=== PATIENT | female | born 1965 | race Caucasian/White ===

== ENCOUNTER 2023-11-17 11:56 | Inpatient (IN) | payer BC ==
[~2023-11-17] VITALS: Ht 157.5 cm; Wt 68.0 kg
[2023-11-17 12:51] LABS: BASOPHILS % (AUTO) 0.2 % (0.0-2.0); EOSINOPHILS % (AUTO) 0.2 % (0.0-6.0); HEMATOCRIT 38 % (33-45); HEMOGLOBIN 12.3 g/dL (11.5-14.8); LYMPHOCYTES # (AUTO) 0.8 K/uL (0.8-4.8); LYMPHOCYTES % (AUTO) 5.5 % (20.0-44.0); MEAN CORPUSCULAR HEMOGLOBIN 30 PG (26.0-33.0); MEAN CORPUSCULAR HGB CONC 33 g/dl (31.0-36.0); MEAN CORPUSCULAR VOLUME 92 fL (82-100); MONOCYTES # (AUTO) 1.1 K/uL (0.1-1.30); NEUTROPHILS # (AUTO) 11.8 K/uL (1.8-8.9); NEUTROPHILS % (AUTO) 86.1 % (43.0-81.0); PLATELET COUNT (AUTO) 220 K/uL (150-450); RED BLOOD CELL COUNT(AUTO) 4.08 MIL/uL (4.0-5.2); RED CELL DISTRIBUTION WIDTH 15.9 % (11.5-15.0); WHITE BLOOD COUNT (AUTO) 13.7 K/uL (4.3-11.0)
[2023-11-17 13:04] LABS: INR 1.18 (0.91-1.10); PARTIAL THROMBOPLASTIN TIME 27.9 SEC (24.3-34.3); PROTHROMBIN TIME 12.4 SECS (9.2-11.1)
[2023-11-17 13:17] LABS: LACTIC ACID 1.1 mmol/L (0.4-2.0)
[2023-11-17 13:36] LABS: CALCIUM, SERUM 9.7 mg/dL (8.5-10.1); CARBON DIOXIDE 30 mmol/L (21-32); CHLORIDE 102 mmol/L (98-107); CREATININE 0.6 mg/dL (0.6-1.3); GLUCOSE 112 mg/dL (74-106); POTASSIUM 3.6 mmol/L (3.5-5.1); SODIUM SERUM 144 mmol/L (136-145); UREA NITROGEN, BLOOD 28 mg/dL (7-18)
[2023-11-17 13:49] LABS: ALANINE AMINOTRANSFERASE 50 U/L (12-78); ALBUMIN 4.1 g/dL (3.4-5.0); ALKALINE PHOSPHATASE 109 U/L (46-116); ASPARTATE AMINOTRANSFERASE 47 U/L (15-37); BILIRUBIN,DIRECT 0.2 mg/dL (0.0-0.2); BILIRUBIN,TOTAL 1.1 mg/dL (0.2-1.0); NT-PRO BNP 2864 pg/mL (0-125); TOTAL PROTEIN, SERUM 8.2 g/dL (6.4-8.2)
[2023-11-17] MEDS ORDERED: CEFEPIME 1 GM VIAL IM SCH (16:30)
[2023-11-17] MEDS ORDERED: MAG HYDROX/AL HYDROX/SIMETH 30 ML UDC PO PRN (16:30)
[2023-11-17] MEDS ORDERED: Z GUARD REMEDY 4 OZ OINT TP PRN (16:30)
[2023-11-17] MEDS ORDERED: ZOLPIDEM TARTRATE 5 MG TABLET PO PRN (16:30)
[2023-11-17] MEDS ORDERED: ONDANSETRON HCL/PF 4 MG/2 ML VIAL IVP PRN (16:30)
[2023-11-17] MEDS ORDERED: MAGNESIUM HYDROXIDE 30 ML UDC PO PRN (16:30)
[2023-11-17 18:22] LABS: APPEARANCE,SPUN,BODY FLUID CLEAR (CLEAR)
[2023-11-17 18:24] LABS: TOTAL VOLUME,BODY FLUID 650 mL; WBC, BODY FLUID 933 /cu. mm. (0-200)
[2023-11-17 18:35] LABS: PROTEIN, BODY FLUID 2.3 G/DL
[2023-11-17] MEDS: CEFEPIME HCL 2 GM in IV D5W 100 ML IV SCH (18:35)
[2023-11-17] MEDS: ASPIRIN 81 MG TAB.CHEW PO SCH (18:35)
[2023-11-17] MEDS: FUROSEMIDE 20 MG/2 ML VIAL IV SCH (18:36)
[2023-11-17 18:41] LABS: MACROPHAGES, BODY FLUID 5; MONOCYTES,BODY FLUID 5 %; POLYNUCLEAR, BODY FLUID 5 % (0-25)
[2023-11-17] MEDS ORDERED: DILT180C93 PO (18:54)
[2023-11-17] MEDS ORDERED: FURO20TA4 PO (18:54)
[2023-11-17] MEDS ORDERED: PEPCID COMPLETE PO (18:54)
[2023-11-17] MEDS ORDERED: ELIQUIS PO (18:54)
[2023-11-17 20:00] VITALS: BP 101/69; TEMP 98.2; O2SAT 97
[2023-11-17] MEDS: METOPROLOL TARTRATE 25 MG TABLET PO SCH (20:37)
[2023-11-17] MEDS: ENOXAPARIN SODIUM 40 MG/0.4 ML DISP.SYRIN SQ SCH (20:38)
[2023-11-18] VITALS: BP 99/51; TEMP 98.2; O2SAT 98
[2023-11-18 04:00] VITALS: BP 111/70; TEMP 98.4; O2SAT 96
[2023-11-18 05:16] LABS: ABG BASE EXCESS 6.7 mmol/L; ABG PCO2 67.2 mmHg (35.0-45.0); ABG TOTAL HEMOGLOBIN 12.2 G/dL (12.0-16.0); AaDO2 136.9 mmHg; COHb 0.7 % (0.5-1.5); MetHb 0.3 % (0.0-1.5); O2Hb 92.1 % (94.0-97.0); SITE, ABG Left Radial; VENT MODE, BG Nasal Cannula
[2023-11-18 06:18] LABS: BASOPHILS % (AUTO) 0.2 % (0.0-2.0); EOSINOPHILS % (AUTO) 0.3 % (0.0-6.0); HEMATOCRIT 34 % (33-45); HEMOGLOBIN 11.3 g/dL (11.5-14.8); LYMPHOCYTES # (AUTO) 0.7 K/uL (0.8-4.8); LYMPHOCYTES % (AUTO) 5.5 % (20.0-44.0); MEAN CORPUSCULAR HEMOGLOBIN 31 PG (26.0-33.0); MEAN CORPUSCULAR HGB CONC 33 g/dl (31.0-36.0); MEAN CORPUSCULAR VOLUME 94 fL (82-100); MONOCYTES # (AUTO) 1.1 K/uL (0.1-1.30); MONOCYTES % (AUTO) 8.8 % (2.0-12.0); NEUTROPHILS # (AUTO) 10.7 K/uL (1.8-8.9); NEUTROPHILS % (AUTO) 85.2 % (43.0-81.0); PLATELET COUNT (AUTO) 202 K/uL (150-450); RED BLOOD CELL COUNT(AUTO) 3.68 MIL/uL (4.0-5.2); WHITE BLOOD COUNT (AUTO) 12.5 K/uL (4.3-11.0)
[2023-11-18 06:39] LABS: ALBUMIN 3.4 g/dL (3.4-5.0); BILIRUBIN,TOTAL 0.8 mg/dL (0.2-1.0); CALCIUM, SERUM 9.2 mg/dL (8.5-10.1); CREATININE 0.5 mg/dL (0.6-1.3); MAGNESIUM 2.4 mg/dL (1.8-2.4); PHOSPHORUS 4.4 mg/dL (2.5-4.9); POTASSIUM 3.8 mmol/L (3.5-5.1); TOTAL PROTEIN, SERUM 7.2 g/dL (6.4-8.2)
[2023-11-18 08:39] VITALS: BP 100/66; TEMP 98.8; O2SAT 96
[2023-11-18 11:00] VITALS: BP 106/72; TEMP 98.1; O2SAT 98
[2023-11-18] MEDS: ENOXAPARIN SODIUM 60 MG/0.6 ML DISP.SYRIN SQ ONE (12:38)
[2023-11-18 16:00] VITALS: BP 104/64; TEMP 98.6; O2SAT 98
[2023-11-18 20:00] VITALS: BP 117/62; TEMP 98.8; O2SAT 97
[2023-11-18] MEDS ORDERED: ENOXAPARIN SODIUM 40 MG/0.4 ML DISP.SYRIN SQ SCH (21:00)
[2023-11-18] MEDS ORDERED: LEVO112T2 PO (21:10)
[2023-11-19] VITALS: BP 132/81; TEMP 98.4; O2SAT 96
[2023-11-19] MEDS: ACETAMINOPHEN 325 MG TABLET PO PRN (02:11)
[2023-11-19 04:00] VITALS: BP 104/62; TEMP 98.2; O2SAT 98
[2023-11-19] MEDS: LEVOTHYROXINE SODIUM 112 MCG TABLET PO SCH (07:49)
[2023-11-19 08:00] VITALS: BP 112/71; TEMP 97.8; O2SAT 95
[2023-11-19 12:00] VITALS: BP 115/73; TEMP 98.5; O2SAT 95
[2023-11-19 16:00] VITALS: BP 132/83; TEMP 98.2; O2SAT 95
[2023-11-19] MEDS: APIXABAN 5 MG TABLET PO SCH (16:59)
[2023-11-19 17:32] LABS: PROTEIN, BODY FLUID 2.7 G/DL
[2023-11-19 19:13] LABS: APPEARANCE,SPUN,BODY FLUID CLEAR (CLEAR); TOTAL VOLUME,BODY FLUID 485 mL
[2023-11-19 19:15] LABS: WBC, BODY FLUID 532 /cu. mm. (0-200)
[2023-11-19 20:00] VITALS: BP 108/64; TEMP 98.4; O2SAT 97
[2023-11-19 20:34] LABS: MACROPHAGES, BODY FLUID 5; POLYNUCLEAR, BODY FLUID 6 % (0-25)
[2023-11-20] VITALS: BP 105/79; TEMP 98.2; O2SAT 94
[2023-11-20 04:48] VITALS: BP 115/73; TEMP 98.4; O2SAT 94
[2023-11-20 07:30] VITALS: BP 92/65; TEMP 99.1; O2SAT 94
[2023-11-20] MEDS: FUROSEMIDE 20 MG/2 ML VIAL IV SCH (08:46)
[2023-11-20] MEDS: ALBUTEROL HALF STRENGTH 1.25 MG/3 ML VIAL.NEB NEB SCH (15:30)
[2023-11-20] MEDS: IPRATROPIUM NEB FS 0.5 MG/2.5 ML AMPUL.NEB NEB SCH (15:30)
[2023-11-20 16:00] VITALS: BP 91/67; TEMP 97.6; O2SAT 93
[2023-11-20] MEDS: methylPREDNISolone SOD SUCC 125 MG/2ML VIAL IV SCH (17:00)
[2023-11-20 20:00] VITALS: BP 98/70; TEMP 98.4; O2SAT 96
[2023-11-21] VITALS: BP 100/66; TEMP 98.1; O2SAT 96
[2023-11-21 04:00] VITALS: BP 106/70; TEMP 97.9; O2SAT 95
[2023-11-21 08:00] VITALS: BP 91/64; TEMP 98.1; O2SAT 94
[2023-11-21 12:00] VITALS: BP 93/71; TEMP 98.4; O2SAT 96
[2023-11-25] MEDS ORDERED: LEVOTHYROXINE SODIUM 112 MCG TABLET PO SCH (07:30)
== END 2023-11-21 15:30 | disposition left against medical advice (07) | DRG 180 ==
LOC: ER 11:58 → TELE 16:07 → MED 11-21 15:08
PROVIDERS: ADMIT Internal Medicine; ATTEND Nurse Practitioner Acute Care
PROC: 0W9B3ZZ Drainage of Left Pleural Cavity, Percutaneous Approach (ICD-10-PCS; principal; 2023-11-17)
PROC: 0W993ZZ Drainage of Right Pleural Cavity, Percutaneous Approach (ICD-10-PCS; 2023-11-20)
DX: C34.90 Malignant neoplasm of unspecified part of unspecified bronchus or lung (principal); I21.A1 Myocardial infarction type 2; J96.21 Acute and chronic respiratory failure with hypoxia; I50.33 Acute on chronic diastolic (congestive) heart failure; J91.0 Malignant pleural effusion; D72.829 Elevated white blood cell count, unspecified; Z87.891 Personal history of nicotine dependence; Z92.3 Personal history of irradiation; Z95.2 Presence of prosthetic heart valve; Z85.3 Personal history of malignant neoplasm of breast; Z79.01 Long term (current) use of anticoagulants; Z86.711 Personal history of pulmonary embolism
CPT/HCPCS: 36415; 36600; 70450-TC; 71045-TC; 80048-TC; 80053-TC; 80076-TC; 82803-TC; 83605-TC; 83735-TC; 83880; 84100-TC; 84484-TC; 85025-TC; 85378-TC; 85730-TC; 89051-TC; 93307-TC; 94799-TC; A4223; G0378; J0692; J1650; J1940; J2930; J7030; J7040; J7060